=== PATIENT | female | born 1960 | race Caucasian/White ===

== ENCOUNTER 2022-03-10 13:25 | Outpatient (CLI) | payer SELFPAY ==
[2022-03-10 17:48] LABS: Albumin* 4.3 g/dL (3.3-5.0); Chloride* 106 mmol/L (96-114); Sodium* 140 mmol/L (135-149)
[2022-03-10 17:49] LABS: Potassium* 4.3 mmol/L (3.6-5.1)
[2022-03-10 17:51] LABS: Bilirubin Direct* 0.2 mg/dL (0.0-0.5); Bilirubin Total* 0.4 mg/dL (0.1-1.5); Blood Urea Nitrogen* 13 mg/dL (7-30); Carbon Dioxide* 28 mmol/L (20-32); Cholesterol* 179 mg/dL (90-199); Creatinine* 0.9 mg/dL (0.5-1.5); Estimated Glomerular Filt Rate 74 ml/min; Glucose* 83 mg/dL (60-115); Total Protein* 6.9 g/dL (6.0-8.3)
[2022-03-10 17:52] LABS: Alanine Aminotransferase* 24 U/L (4-35); Alkaline Phosphatase* 103 U/L (40-150); Aspartate Amino Transferase* 25 U/L (12-35); Calcium* 9.4 mg/dL (8.4-10.6); HDL Cholesterol* 38 mg/dL (>=50); LDL Cholesterol Calculated 119 mg/dL (<100); Triglycerides* 108 mg/dL (40-149)
== END 2022-03-10 13:26 | disposition home or self-care (01) ==
PROVIDERS: PCP Emergency Medicine; Visit Provider Emergency Medicine
DX: Z00.00 Encounter for general adult medical examination without abnormal findings (principal); E66.9 Obesity, unspecified; E03.9 Hypothyroidism, unspecified; Z13.1 Encounter for screening for diabetes mellitus; Z13.6 Encounter for screening for cardiovascular disorders
CPT/HCPCS: 80048; 80061; 80076

== ENCOUNTER 2023-01-06 11:55 | Outpatient (CLI) | payer MEDICARE, SELFPAY ==
--- NOTE | 2023-01-06 12:23 | W.ANESCHARGE ---
Anesthesia Charges Start Date/Time Anesthesia Start Date: 01/06/23 Anesthesia Start Time: 12:38 Stop Date/Time Anesthesia Stop Date: 01/06/23 Anesthesia Stop Time: 13:02
--- NOTE | 2023-01-06 13:06 | W.ANESCHARGE ---
Anesthesia Charges Start Date/Time Anesthesia Start Date: 01/06/23 Anesthesia Start Time: 12:38 Stop Date/Time Anesthesia Stop Date: 01/06/23 Anesthesia Stop Time: 13:02
== END 2023-01-06 11:56 | disposition home or self-care (01) ==
LOC: OP CLINIC 11:55
PROVIDERS: PCP Emergency Medicine; Visit Provider Internal Medicine
DX: Z12.11 Encounter for screening for malignant neoplasm of colon (principal); K57.30 Diverticulosis of large intestine without perforation or abscess without bleeding; Z86.010 Personal history of colon polyps
CPT/HCPCS: 45378; 811; 812; J2704

== ENCOUNTER 2023-03-23 14:55 | Outpatient (CLI) | payer MEDICARE, SELFPAY | END 2023-03-23 14:56 | disposition home or self-care (01) | LOC: LKVREF 14:56 | PROVIDERS: PCP Emergency Medicine; Visit Provider Emergency Medicine | DX: L65.9 Nonscarring hair loss, unspecified (principal); Z13.0 Encounter for screening for diseases of the blood and blood-forming organs and certain disorders involving the immune mechanism | CPT/HCPCS: 82728 ==

== ENCOUNTER 2023-10-26 14:42 | Outpatient (CLI) | payer MEDICARE, SELFPAY ==
--- NOTE | 2023-10-26 15:00 | CRLHL7_ITS ---
For Patients: As a result of the Century Cures Act, medical imaging exams and procedure reports are released immediately into your electronic medical record. You may view this report before your referring provider. If you have questions, please contact your health care provider. BILATERAL SCREENING MAMMOGRAM WITH COMPUTER-AIDED DETECTION AND TOMOSYNTHESIS TECHNIQUE: CC and MLO views were obtained. These mammographic images have been obtained using full-field digital technique. These mammographic images were interpreted with the benefit of computer-aided detection. Breast Tomosynthesis was used in this interpretation. COMPARISON FILM: 12/15/22, 07/08/22, 11/10/20. FINDINGS: There are scattered areas of fibroglandular density IMPRESSION: There is no radiographic evidence for malignancy. ASSESSMENT: BI-RADS Category 1: Negative RECOMMENDATION: Routine screening mammogram in 1 year. A lay language report of this examination will be provided to the patient. Russ Torres M.D. Diagnostic Radiologist [email or web address] EILEEN/Dictated by: Russ Torres MD @ 10/27/2023 1:39:00 PM (Electronically Signed)
== END 2023-10-26 14:43 | disposition home or self-care (01) ==
LOC: MAMMO 14:44
PROVIDERS: PCP Emergency Medicine; Visit Provider Physician Assistant Medical
DX: Z12.31 Encounter for screening mammogram for malignant neoplasm of breast (principal)
CPT/HCPCS: 77063; 77067

== ENCOUNTER 2024-06-13 08:22 | Outpatient (CLI) | payer BC, SELFPAY | END 2024-06-13 08:23 | disposition home or self-care (01) | LOC: NFLDREF 06-16 13:35 | PROVIDERS: PCP Emergency Medicine; Referring Provider Emergency Medicine; Visit Provider Emergency Medicine | DX: E03.8 Other specified hypothyroidism (principal); E06.3 Autoimmune thyroiditis; E61.1 Iron deficiency; R73.03 Prediabetes; Z13.6 Encounter for screening for cardiovascular disorders | CPT/HCPCS: 80048; 80061; 82728; 84443 ==